=== PATIENT | female | born 1950 | race Caucasian/White ===

== ENCOUNTER → 2019-07-22 | Outpatient (CLI) | payer MEDICARE, OTHER ==
[~2019-07-22] MED LIST: CONEST.9; LISI20; ONDA8ODT MM
== END | disposition home or self-care (01) ==
LOC: LAB SHORT 09:24 → PLD 09:24
DX: D48.5 Neoplasm of uncertain behavior of skin (principal)
CPT/HCPCS: 88305

== ENCOUNTER → 2019-11-17 | Outpatient (CLI) | payer MEDICARE, OTHER | END | disposition home or self-care (01) | LOC: PLD 13:58 → LAB SHORT 13:58 | DX: L57.0 Actinic keratosis (principal) | CPT/HCPCS: 88305 ==

== ENCOUNTER 2020-08-05 10:03 | Emergency (ER) | payer MEDICARE, OTHER ==
[~2020-08-05] VITALS: Ht 160 cm; Wt 66.7 kg
[2020-08-05] MEDS ORDERED: CYCL0.05OP BOTHEYES (12:26)
[2020-08-05] MEDS ORDERED: FUROSEMIDE20 MG PO (12:27)
[2020-08-05] MEDS ORDERED: Alprazolam1 MG PO (12:27)
[2020-08-05] MEDS ORDERED: Klor-Con 1010 MEQ PO (12:28)
[2020-08-05] MEDS ORDERED: Carvedilol25 MG PO (12:29)
[2020-08-05] MEDS ORDERED: ESTRADIOL1 M1 PO (12:29)
[2020-08-05] MEDS ORDERED: CALCIUM-MAGNES1 EAC9 PO (12:48)
[2020-08-05] MEDS ORDERED: OSTEO BI-FLEX JOINT PO (12:48)
[2020-08-05] MEDS ORDERED: JUICE PLUS FIBRE PO (12:49)
--- NOTE | 2020-08-05 13:04 | NUR ---
PT TRANSFERED TO [facility] FROM ER VIA [facility]URNY. History, Chart, Medications and Allergies reviewed before start of procedure. Lungs clear T/O to Auscultation. Patient confirms NPO status and agrees with scheduled surgery. Patient States Post-Procedure ride home has been arranged.
--- NOTE | 2020-08-05 14:22 | NUR ---
TO STEP WITH RN MONITORED FOR 15 MINUTES THEN ESCORTED TO BATHROOM BY 2 RNS REPORT TO VICKIE ERWIN RN AND CARE TURNED OVER
--- NOTE | 2020-08-05 15:15 | NUR ---
Discharge instructions reviewed with patient. Patient verbalizes understanding. Copy given to patient to take home. Patient States Post-Procedure ride home has been arranged. Discharged via wheelchair to private car for ride home.
--- NOTE | 2020-08-09 14:49 | NUR ---
08/09/20 1449 Paramjit Richardson O2 VIA N/C INTACT THROUGHOUT SEDATION/PROCEDURE. MONITOR INTACT WITH CONTINUOUS PULSE OXIMETRY AND INTERMITTENT BP.History, Chart, Medications and Allergies reviewed before start of procedure.Patient to ENDO 13-LEAD EKG REVIEWED WITH PHYSICIAN PRIOR TO START OF PROCEDURE.Bite Block Placed. PATIENT DETERMINED TO BE ASA APPROPRIATE FOR PROPOFOL SEDATION PRIOR TO START OF PROCEDURE BY
== END 2020-08-05 13:00 | disposition home or self-care (01) ==
LOC: ER 10:03
DX: T18.198A Other foreign object in esophagus causing other injury, initial encounter (principal); K25.9 Gastric ulcer, unspecified as acute or chronic, without hemorrhage or perforation; I10 Essential (primary) hypertension; Z88.1 Allergy status to other antibiotic agents; Z88.5 Allergy status to narcotic agent; Z88.2 Allergy status to sulfonamides; Z20.828 Contact with and (suspected) exposure to other viral communicable diseases; Z91.041 Radiographic dye allergy status; Z79.899 Other long term (current) drug therapy; Z87.891 Personal history of nicotine dependence
CPT/HCPCS: 88305; 88342; 96374; 99284-25; J2405; J2704; J7030; J7120; U0003

== ENCOUNTER 2021-02-21 07:08 | Day surgery (SDC) | payer MEDICARE, OTHER ==
[~2021-02-21] VITALS: Ht 160 cm; Wt 67.6 kg
[~2021-02-21 07:08] MED LIST changes: +Alprazolam1 MG PO; +CALCIUM-MAGNES1 EAC9 PO; +CYCL0.05OP BOTHEYES; +Carvedilol25 MG PO; +ESTRADIOL1 M1 PO; +FUROSEMIDE20 MG PO; +JUICE PLUS FIBRE PO; +Klor-Con 1010 MEQ PO; +OSTEO BI-FLEX JOINT PO
--- NOTE | 2021-02-21 08:58 | NUR ---
02/21/21 0858 Carrington Valladares CALL LIGHT WITHIN REACH
== END 2021-02-21 10:12 | disposition home or self-care (01) ==
LOC: ORSCSDS 07:08
PROVIDERS: Surgery
PROC: 0DJD8ZZ Inspection of Lower Intestinal Tract, Via Natural or Artificial Opening Endoscopic (ICD-10-PCS; principal; 2021-02-21 09:15)
DX: Z12.11 Encounter for screening for malignant neoplasm of colon (principal); Z80.0 Family history of malignant neoplasm of digestive organs; I10 Essential (primary) hypertension; Z87.891 Personal history of nicotine dependence; Z79.899 Other long term (current) drug therapy
CPT/HCPCS: J2704; J7120

== ENCOUNTER → 2021-06-19 | Outpatient (CLI) | payer MEDICARE, OTHER ==
[2021-06-19 16:03] LABS: Alanine Aminotransfer (ALT/SGP 23 U/L (12-78); Albumin, Blood 3.3 g/dL (3.4-5.0); Albumin/Globulin Ratio 0.9 (0.8-1.8); Alk Phos 74 U/L (50-136); Anion Gap 5 mmol/L (6-16); Aspartate Aminotrans (AST/SGOT 20 U/L (12-37); Bilirubin, Total 0.3 mg/dL (0.1-1.0); Blood Urea Nitrogen 21 mg/dL (8-24); CHOL/HDL RATIO 2.5; CO2, Blood 29 mmol/L (21-32); Calcium, Blood 9.1 mg/dL (8.5-10.1); Chloride, Blood 106 mmol/L (98-108); Cholesterol 218 mg/dL (50-200); Creatinine, Blood 0.96 mg/dL (0.40-1.00); Globulin, Blood 3.8 g/dL (2.2-4.0); Glomerular Filtration Rate 57 (60-); Glucose, Blood 84 mg/dL (70-99); HDL Cholesterol 86 mg/dL (>39); LDL/HDL RATIO 1.3; Low Density Lipoprotein Chol 112 mg/dL (0-110); Potassium, Blood 4.1 mmol/L (3.5-5.5); Sodium, Blood 140 mmol/L (136-145); Total Protein, Blood 7.1 g/dL (6.4-8.2); Triglycerides 101 mg/dL (30-160); Very Low Density Lipoprot Chol 20 mg/dL (6-32)
== END | disposition home or self-care (01) ==
LOC: LAB SHORT 08:45 → LAB 08:45
PROVIDERS: Hospitalist
DX: E78.5 Hyperlipidemia, unspecified (principal); I10 Essential (primary) hypertension
CPT/HCPCS: 80053; 80061

== ENCOUNTER → 2022-08-12 | Outpatient (CLI) | payer MEDICARE, OTHER ==
[2022-08-13 14:51] LABS: Campylobacter Sp Not Detected (NOT DETECT); Plesiomonas Shigelloides Not Detected (NOT DETECT); Salmonella Sp Not Detected (NOT DETECT); Vibrio Sp Not Detected (NOT DETECT); Yersinia Enterocolitica Not Detected (NOT DETECT)
[2022-08-13 14:52] LABS: Adenovirus F 40/41 Not Detected (NOT DETECT); Astrovirus Not Detected (NOT DETECT); Cryptosporidium Not Detected (NOT DETECT); Cyclospora Cayetanensis Not Detected (NOT DETECT); E. Coli O157 Not Detected (NOT DETECT); Entamoeba Histolytica Not Detected (NOT DETECT); Enteroaggregative E. coli-EAEC Not Detected (NOT DETECT); Enteropathogenic E. coli-EPEC Not Detected (NOT DETECT); Enterotoxigenic E. coli-ETEC Not Detected (NOT DETECT); Giardia Lamblia Not Detected (NOT DETECT); Norovirus GI/GII Detected (NOT DETECT); Rotavirus A Not Detected (NOT DETECT); Sapovirus Not Detected (NOT DETECT); Shiga Toxin-prod E. coli-STEC Not Detected (NOT DETECT); Shigella/Enteroin E. coli-EIEC Not Detected (NOT DETECT); Vibrio Cholerae Not Detected (NOT DETECT)
== END | disposition home or self-care (01) ==
LOC: LAB SHORT 08:25 → LAB 08:25
PROVIDERS: Physician Assistant Surgical
DX: A08.4 Viral intestinal infection, unspecified (principal); R19.7 Diarrhea, unspecified
CPT/HCPCS: 87507

== ENCOUNTER 2024-07-20 09:51 | Day surgery (SDC) | payer MEDICARE, OTHER ==
[~2024-07-20] VITALS: Ht 157.5 cm; Wt 66.5 kg
[~2024-07-20 09:51] MED LIST changes: +LOSA25; +Lactated Ringer's 1,000 ML IV ONE; +OMEP20ER
[2024-07-20] MEDS ORDERED: CeFAZolin Sodium 2,000 MG VIAL ONE (10:35)
[2024-07-20] MEDS ORDERED: NS 50 ML IV ONE (10:35)
[2024-07-20] MEDS ORDERED: Lactated Ringer's 1,000 ML IV ONE (10:59)
--- NOTE | 2024-07-20 11:28 | NUR ---
07/20/24 1128 Nivia Rehman 1 MG EPI ADDED TO FIORST BAG OF LR FOR IRREEGATION. 0.15MG OF EPI (1MG/ML) ADDED TO 0.5% BUPIVACAINE 0.5% (5MG/ML; 30ML) TO MAKE BUPIVACAINE 0.5% WITH EPI 1:200,000 ON FIELD.
[2024-07-20] MEDS ORDERED: Bupivacaine 0.5% HCl 5 MG/ML 30MLVIAL INJ ONE ×2 (11:29→12:33)
[2024-07-20] MEDS ORDERED: EPINEPhrine HCl 1 MG/ML 1ML Amp XX ONE ×2 (11:30→12:33)
[2024-07-20] MEDS ORDERED: FentaNYL Citrate 50 MCG/ML 2 ML Injection ONE ×2 (11:57→13:15)
[2024-07-20] MEDS ORDERED: propofoL 20 ML IV ONE (11:57)
[2024-07-20] MEDS ORDERED: Midazolam HCl 1MG / ML 2ML Vial ONE (11:57)
[2024-07-20] MEDS ORDERED: Ketorolac Tromethamine 30mg Vial ONE (11:58)
[2024-07-20] MEDS ORDERED: Ondansetron HCl 2 MG / ML 2ML Vial ONE ×2 (11:58→13:14)
[2024-07-20] MEDS ORDERED: Dexamethasone Sod Phos 10 MG/ML 1ML VIAL ONE (11:58)
[2024-07-20] MEDS ORDERED: Metoclopramide HCl 5MG / ML 2ML Vial ONE (13:52)
[2024-07-20 14:13] VITALS: BP 164/69
--- NOTE | 2024-07-20 16:10 | NUR ---
07/20/24 1610 Princess Medina SHE HAD 6/10 AT DISCHARGE WITH IT BEING TOLERABLE FLACC WAS 1 OF 10 PT RELAXED, DENIED NAUSEAU AND WAS ABLE TO JOKE AND LAUGH. EXPRESSED READINESS TO GO HOME.
== END 2024-07-20 13:14 | disposition home or self-care (01) ==
LOC: ORSCSDS 09:51
PROVIDERS: Orthopaedic Surgery
PROC: 0SBC4ZZ Excision of Right Knee Joint, Percutaneous Endoscopic Approach (ICD-10-PCS; principal; 2024-07-20 13:30)
DX: M17.11 Unilateral primary osteoarthritis, right knee (principal); S83.281A Other tear of lateral meniscus, current injury, right knee, initial encounter; I10 Essential (primary) hypertension; F41.9 Anxiety disorder, unspecified; F32.A Depression, unspecified; Z79.899 Other long term (current) drug therapy; Z87.891 Personal history of nicotine dependence
CPT/HCPCS: J0171; J0690; J1100; J1885; J2250; J2405; J2704; J2765; J3010; J7120

== ENCOUNTER 2024-07-22 11:28 | Emergency (ER) | payer MEDICARE, OTHER ==
[~2024-07-22] VITALS: Ht 157.5 cm; Wt 65.8 kg
[~2024-07-22 11:28] MED LIST changes: -Lactated Ringer's 1,000 ML IV ONE
[2024-07-22] MEDS ORDERED: NS 1,000 ML IV SCH (11:40)
[2024-07-22 11:50] LABS: BASOPHILS ABSOLUTE AUTO 0.05 K/mm3 (0.00-0.23); BASOPHILS PERCENT AUTO 0 % (0-2); EOSINOPHILS ABSOLUTE AUTO 0.37 K/mm3 (0.00-0.68); EOSINOPHILS PERCENT AUTO 2 % (0-6); Hemoglobin 12.4 g/dL (11.5-16.0); IMMATURE GRAN ABSOLUTE AUTO 0.08 K/mm3 (0.00-0.10); IMMATURE GRAN PERCENT AUTO 1 % (0-1); LYMPHOCYTES ABSOLUTE AUTO 2.63 K/mm3 (0.84-5.20); LYMPHOCYTES PERCENT AUTO 17 % (21-46); MONOCYTES ABSOLUTE AUTO 1.09 K/mm3 (0.16-1.47); MONOCYTES PERCENT AUTO 7 % (4-13); Mean Corpuscular HGB 33.1 pg (26.0-34.0); Mean Corpuscular HGB Conc 32.6 g/dL (31.5-36.5); Mean Corpuscular Volume 101 fL (80-100); NEUTROPHILS ABSOLUTE AUTO 11.76 K/mm3 (1.96-9.15); NEUTROPHILS PERCENT AUTO 74 % (41-73); Platelet Count 217 K/mm3 (150-400); RDW Coefficient Variation 12.7 % (11.7-14.2); RDW Standard Deviation 47.4 fL (35.1-46.3); Red Blood Cell Count 3.75 M/mm3 (3.80-5.20); White Blood Cell Count 15.98 K/mm3 (4.00-11.30)
[2024-07-22 12:50] LABS: Albumin, Blood 3.1 g/dL (3.4-5.0); Albumin/Globulin Ratio 0.9 (0.8-1.8); Bilirubin, Total 0.3 mg/dL (0.1-1.0); Bun/Creatinine Ratio 25.5 (12.0-20.0); Calcium, Blood 8.2 mg/dL (8.5-10.1); Creatinine, Blood 0.75 mg/dL (0.40-1.00); Globulin, Blood 3.3 g/dL (2.2-4.0); Total Protein, Blood 6.4 g/dL (6.4-8.2)
[2024-07-22 13:00] VITALS: BP 169/88
[2024-07-22] MEDS ORDERED: PROM25 PO (13:08)
== END 2024-07-22 13:30 | disposition home or self-care (01) ==
LOC: ER 11:28
PROVIDERS: Emergency Medicine
DX: R11.2 Nausea with vomiting, unspecified (principal); R55 Syncope and collapse; I10 Essential (primary) hypertension; Z87.891 Personal history of nicotine dependence; Z79.899 Other long term (current) drug therapy; Z88.5 Allergy status to narcotic agent; Z88.2 Allergy status to sulfonamides; Z88.1 Allergy status to other antibiotic agents; Z91.041 Radiographic dye allergy status; Z88.8 Allergy status to other drugs, medicaments and biological substances
CPT/HCPCS: 80053; 83690; 85025; 93005; 93010; 96360; 96361; 99283-25; J7030

== ENCOUNTER → 2025-01-19 | Outpatient (CLI) | payer MEDICARE, OTHER ==
[~2025-01-19] MED LIST changes: +PROM25 PO
[2025-01-19 19:18] LABS: BASOPHILS ABSOLUTE AUTO 0.05 K/mm3 (0.00-0.23); BASOPHILS PERCENT AUTO 1 % (0-2); EOSINOPHILS ABSOLUTE AUTO 0.27 K/mm3 (0.00-0.68); EOSINOPHILS PERCENT AUTO 3 % (0-6); Hematocrit 39.6 % (33.0-51.0); Hemoglobin 12.7 g/dL (11.5-16.0); IMMATURE GRAN ABSOLUTE AUTO 0.02 K/mm3 (0.00-0.10); IMMATURE GRAN PERCENT AUTO 0 % (0-1); LYMPHOCYTES ABSOLUTE AUTO 2.66 K/mm3 (0.84-5.20); LYMPHOCYTES PERCENT AUTO 32 % (21-46); MONOCYTES ABSOLUTE AUTO 0.69 K/mm3 (0.16-1.47); MONOCYTES PERCENT AUTO 8 % (4-13); Mean Corpuscular HGB Conc 32.1 g/dL (31.5-36.5); Mean Corpuscular Volume 103 fL (80-100); Mean Platelet Volume 11.7 fL (9.1-12.4); NEUTROPHILS ABSOLUTE AUTO 4.53 K/mm3 (1.96-9.15); NEUTROPHILS PERCENT AUTO 55 % (41-73); Platelet Count 185 K/mm3 (150-400); RDW Coefficient Variation 12.1 % (11.7-14.2); RDW Standard Deviation 45.5 fL (35.1-46.3); Red Blood Cell Count 3.85 M/mm3 (3.80-5.20); White Blood Cell Count 8.22 K/mm3 (4.00-11.30)
== END ==
LOC: LAB 17:33 → LAB SHORT 17:33
PROVIDERS: Hospitalist
DX: E55.9 Vitamin D deficiency, unspecified (principal); R53.83 Other fatigue
CPT/HCPCS: 82306; 84443; 85025

== ENCOUNTER 2025-09-27 11:12 | Day surgery (SDC) | payer MEDICARE, OTHER ==
[~2025-09-27] VITALS: Ht 157.5 cm; Wt 70.2 kg
[2025-09-27] MEDS ORDERED: CeFAZolin Sodium 2,000 MG VIAL ONE (11:25)
[2025-09-27] MEDS ORDERED: FAMO20 PO (11:34)
[2025-09-27] MEDS ORDERED: FURO20 PO (11:36)
[2025-09-27] MEDS ORDERED: POTA10T PO (11:37)
[2025-09-27] MEDS ORDERED: NS 1,000 ML IV ONE (11:52)
--- NOTE | 2025-09-27 11:54 | NUR ---
09/27/25 1154 MARIANA VENCES SPOUSE, PRIYANKA, AT BEDSIDE. PT RESTING ON GURNEY, RAILS UP, BRAKES LOCKED. CALL LIGHT IN REACH
[2025-09-27] MEDS ORDERED: Bupivacaine 0.5% W/EPI 1:200000 SDV 30 ML Vial ONE (13:09)
--- NOTE | 2025-09-27 13:10 | NUR ---
09/27/25 1310 Yannick Langston CASE DONE LOCAL ONLY, MONITORING BY [facility].NATHAN
[2025-09-27] MEDS ORDERED: Bupivacaine 0.5% W/EPI 1:200000 SDV 10ML INJ ONE (13:11)
[2025-09-27 13:21] VITALS: BP 170/90
== END 2025-09-27 13:52 | disposition home or self-care (01) ==
LOC: ORSCSDS 11:12
PROVIDERS: Orthopaedic Surgery
PROC: 01N50ZZ Release Median Nerve, Open Approach (ICD-10-PCS; principal; 2025-09-27 12:45)
DX: G56.03 Carpal tunnel syndrome, bilateral upper limbs (principal); I10 Essential (primary) hypertension; F41.8 Other specified anxiety disorders; Z79.899 Other long term (current) drug therapy; Z87.891 Personal history of nicotine dependence
CPT/HCPCS: J0690; J7120